=== PATIENT | male | born 1955 | race African-American/Black ===

== ENCOUNTER 2019-04-28 10:47 | Emergency (ER) | payer OTHER ==
[~2019-04-28] VITALS: Ht 188 cm; Wt 120.2 kg
[~2019-04-28 10:47] MED LIST: BAY PO; HYD25 PO; TOP50 PO; ZES5 PO; ZOC10 PO
[2019-04-28 10:53] VITALS: Ht 188 cm; Wt 120.2 kg
[2019-04-28 12:02] VITALS: BP 156/87
== END 2019-04-28 12:02 | disposition home or self-care (01) ==
LOC: ED 10:47
DX: M25.461 Effusion, right knee (principal); R03.0 Elevated blood-pressure reading, without diagnosis of hypertension; E11.9 Type 2 diabetes mellitus without complications; F41.9 Anxiety disorder, unspecified; E78.00 Pure hypercholesterolemia, unspecified
CPT/HCPCS: J1885; J7512